=== PATIENT | female | born 1990 | race Caucasian/White ===

== ENCOUNTER 2019-08-23 20:21 | Emergency (ER) | payer BC ==
[2019-08-23 20:36] VITALS: BP 134/86; PULSE 70
--- NOTE | 2019-08-23 22:44 | EDM.PDOC ---
ED HPI GENERAL MEDICAL PROBLEM - General Chief Complaint: Abdominal Pain Stated Complaint: ABDOMINAL PAIN Time Seen by Provider: 08/23/19 22:08 Source of Information: Reports: Patient History Limitations: Reports: Other (The patient is angry about her situation, stating that she is not getting answers) - History of Present Illness INITIAL COMMENTS - FREE TEXT/NARRATIVE: Ms. Fox is a 29-year-old woman with a past medical history significant for untreated polycystic ovarian disease, status post a cholecystectomy in 2014, who states that she ate dinner around 19:30, then developed sudden-onset sharp right lower quadrant abdominal pain around that time. She states that the pain shot up a little bit, and was felt as a burning sensation in her lower right back. Since then, the pain has lessened considerably, such that she in not in much pain here in the ED. The patient reports that she has had similar sharp right lower quadrant pain radiating to her right lower back coming and going about every 2 weeks, usually in the evening, since May 2019. She has been taking naproxen every other day. She states that she was seen at the [facility] for this, but not given any explanation. The patient reports that she had an IUD placed about 6 or 7 weeks ago (around Jul 05 to Jul 12), and out of concern that her pain might be related to dislodgment of the IUD, she felt for the IUD strings tonight, finding them, but also noticing a firm bump on the anterior wall of her vagina that she has not felt previously. The patient acknowledges that she has not felt for her IUD strings since the IUD was placed. The patient also reports that she has felt constipated for the past few weeks. She did not have a bowel movement tonight. She has had some nausea, but no emesis. She reports a 10 pound weight gain over the past 4 weeks. No recent fever, chills, cough, dyspnea chest pain, palpitations, diarrhea, joint aches, headaches, or rashes. The patient does not have a PCP. Her Commercial Producer is Dr. Hannah Ferrari. Treatments CARPET WINDER: Reports: NSAIDS, Other (see below) Other Treatments CARPET WINDER: naproxen Right Lower Abdominal Pain Score (Numeric/FACES): 3 - Related Data Allergies Allergy/AdvReac Type Severity Reaction Status Date / Time No Known Allergies Allergy Verified 08/23/19 20:36 Home Meds: Home Meds . [No Known Home Meds] 08/23/19 [History] Past Medical History [employer] History: Reports: Polycystic Ovaries (untreated), Therapeutic ( x 1) Endocrine/Metabolic History: Reports: Obesity/BMI 30+ - Past Surgical History GI Surgical History: Reports: Cholecystectomy (2015) Social & Family History - Tobacco Use Smoking Status *Q: Never Smoker - Caffeine Use Caffeine Use: Reports: Coffee - Alcohol Use Alcohol Use History: Yes Alcohol Use Frequency: Socially - Recreational Drug Use Recreational Drug Use: No - Living Situation & Occupation Living situation: Reports: Single, Alone Occupation: Employed ([employer]) ED ROS GENERAL - Review of Systems Review Of Systems: Comprehensive ROS is negative, except as noted in HPI. ED EXAM, GI/ABD - Physical Exam Exam: See Below Exam Limited By: No Limitations General Appearance: Alert, WD/WN, No Apparent Distress Eyes: Bilateral: Normal Appearance, EOMI Ears: Normal External Exam, Hearing Grossly Normal Nose: Normal Inspection Throat/Mouth: Normal Inspection, Normal Lips, Normal Voice, No Airway Compromise Head: Atraumatic, Normocephalic Neck: Normal Inspection, Full Range of Motion Respiratory/Chest: No Respiratory Distress, Lungs Clear, Normal Breath Sounds, No Accessory Muscle Use Cardiovascular: Normal Peripheral Pulses, Regular Rate, Rhythm, No Edema, No Gallop, No JVD, No Murmur, No Rub GI/Abdominal Exam: Normal Bowel Sounds, Soft, No Organomegaly, No Distention, No Abnormal Bruit, No Mass, Tender (Minimal, right pelvic only. Nontender elsewhere.) (Female) Exam: Normal External Exam, Normal Bimanual Exam, Vaginal Bleeding ( mild, thin), Other (IUD strings visible). No: Vaginal Discharge, Vaginal Lesions, Vaginal Tears Rectal (Female) Exam: Deferred Back Exam: Normal Inspection, Full Range of Motion. No: CVA Tenderness (L), CVA Tenderness (R) Extremities: Normal Inspection, Normal Range of Motion, No Pedal Edema, Normal Capillary Refill Neurological: Alert, Oriented, Normal Cognition, No Motor/Sensory Deficits Psychiatric: Normal Affect Skin Exam: Warm, Dry, Intact, Normal Color, No Rash Course - Vital Signs Last Recorded V/S: Last Vital Signs Temp 37.2 C 08/23/19 20:30 Pulse 70 08/23/19 20:30 Resp 18 08/23/19 20:30 BP 134/86 08/23/19 20:30 Pulse Ox 99 08/23/19 20:30 - Orders/Labs/Meds Labs: Laboratory Tests 08/23/19 08/23/19 08/23/19 Range/Units 21:15 21:15 21:35 WBC 6.47 (3.98-10.04) K/mm3 RBC 4.50 (3.98-5.22) M/mm3 Hgb 13.4 (11.2-15.7) gm/dl Hct 39.8 (34.1-44.9) % MCV 88.4 (79.4-94.8) fl MCH 29.8 (25.6-32.2) pg MCHC 33.7 (32.2-35.5) g/dl RDW Std Deviation 40.6 (36.4-46.3) fL Plt Count 193 (182-369) K/mm3 MPV 10.2 (9.4-12.3) fl Neutrophils % (Manual) 58 (40-60) % Band Neutrophils % 0 (0-10) % Lymphocytes % (Manual) 35 (20-40) % Atypical Lymphs % 0 % Monocytes % (Manual) 5 (2-10) % Eosinophils % (Manual) 1 (0.7-5.8) % Basophils % (Manual) 1 (0.1-1.2) Platelet Estimate Adequate RBC Morph Comment Normal Sodium 140 (136-145) mEq/L Potassium 4.5 (3.5-5.1) mEq/L Chloride 103 (98-107) mEq/L Carbon Dioxide 29 (21-32) mEq/L Anion Gap 12.5 (5-15) BUN 21 H (7-18) mg/dL Creatinine 0.8 (0.55-1.02) mg/dL Est Cr Clr Drug Dosing 104.66 mL/min Estimated GFR (MDRD) > 60 (>60) mL/min BUN/Creatinine Ratio 26.3 H (14-18) Glucose 85 (74-106) mg/dL Calcium 9.1 (8.5-10.1) mg/dL Total Bilirubin 1.6 H (0.2-1.0) mg/dL AST 12 L (15-37) U/L ALT 19 (14-59) U/L Alkaline Phosphatase 38 L (46-116) U/L Total Protein 7.7 (6.4-8.2) g/dl Albumin 4.0 (3.4-5.0) g/dl Globulin 3.7 gm/dL Albumin/Globulin Ratio 1.1 (1-2) Urine Color Yellow (Yellow) Urine Appearance Clear (Clear) Urine pH 7.5 (5.0-8.0) Ur Specific [place] 1.020 (1.005-1.030) Urine Protein Negative (Negative) Urine Glucose (UA) Negative (Negative) Urine Ketones Negative (Negative) Urine Occult Blood 1+ H (Negative) Urine Nitrite Negative (Negative) Urine Bilirubin Negative (Negative) Urine Urobilinogen 0.2 (0.2-1.0) Ur Leukocyte Esterase Negative (Negative) Urine RBC 0-5 (0-5) /hpf Urine WBC 0-5 (0-5) /hpf Ur Squamous Epith Cells 5-10 H (0-5) /hpf Urine Bacteria Few (FEW) /hpf Urine Mucus Not seen (FEW) /hpf Urine HCG, Qual (NEGATIVE) 08/23/19 Range/Units 21:35 WBC (3.98-10.04) K/mm3 RBC (3.98-5.22) M/mm3 Hgb (11.2-15.7) gm/dl Hct (34.1-44.9) % MCV (79.4-94.8) fl MCH (25.6-32.2) pg MCHC (32.2-35.5) g/dl RDW Std Deviation (36.4-46.3) fL Plt Count (182-369) K/mm3 MPV (9.4-12.3) fl Neutrophils % (Manual) (40-60) % Band Neutrophils % (0-10) % Lymphocytes % (Manual) (20-40) % Atypical Lymphs % % Monocytes % (Manual) (2-10) % Eosinophils % (Manual) (0.7-5.8) % Basophils % (Manual) (0.1-1.2) Platelet Estimate RBC Morph Comment Sodium (136-145) mEq/L Potassium (3.5-5.1) mEq/L Chloride (98-107) mEq/L Carbon Dioxide (21-32) mEq/L Anion Gap (5-15) BUN (7-18) mg/dL Creatinine (0.55-1.02) mg/dL Est Cr Clr Drug Dosing mL/min Estimated GFR (MDRD) (>60) mL/min BUN/Creatinine Ratio (14-18) Glucose (74-106) mg/dL Calcium (8.5-10.1) mg/dL Total Bilirubin (0.2-1.0) mg/dL AST (15-37) U/L ALT (14-59) U/L Alkaline Phosphatase (46-116) U/L Total Protein (6.4-8.2) g/dl Albumin (3.4-5.0) g/dl Globulin gm/dL Albumin/Globulin Ratio (1-2) Urine Color (Yellow) Urine Appearance (Clear) Urine pH (5.0-8.0) Ur Specific [place] (1.005-1.030) Urine Protein (Negative) Urine Glucose (UA) (Negative) Urine Ketones (Negative) Urine Occult Blood (Negative) Urine Nitrite (Negative) Urine Bilirubin (Negative) Urine Urobilinogen (0.2-1.0) Ur Leukocyte Esterase (Negative) Urine RBC (0-5) /hpf Urine WBC (0-5) /hpf Ur Squamous Epith Cells (0-5) /hpf Urine Bacteria (FEW) /hpf Urine Mucus (FEW) /hpf Urine HCG, Qual Negative (NEGATIVE) - Re-Assessments/Exams Free Text/Narrative Re-Assessment/Exam: 08/23/19 22:39 2-view radiograph of the abdomen appears to demonstrate some stool in the cecum and in the descending colon, but not an excessive amount, and an otherwise nonspecific bowel gas pattern. An IUD is in anatomic position. Cholecystectomy wili in the right upper quadrant incidentally noted. Formal read per the Radiologist pending. The patient's CBC is unremarkable. Her CMP is remarkable for a BUN slightly elevated at 21 with a creatinine normal at 0.8. Her total bilirubin is elevated at 1.6, with the remainder of her CMP being unremarkable. Her urinalysis is unremarkable. Her urine test is negative. As per the HPI, the patient has had recurrent sharp right lower quadrant pain radiating upwards into her right flank about every 2 weeks since May. This is not new. What is new, is the patient palpating a lump along her anterior vaginal wall, near the introitus, when checking for the IUD strings. The patient has not felt that before, but acknowledges that she has had not checked for the strings previously, either. On examination, the patient has mild right pelvic and mild right upper quadrant tenderness, but her abdomen is soft with normoactive bowel sounds, and is otherwise nontender. At present, I do not see an indication for an imaging study, however, I will perform a pelvic exam and see if I find anything abnormal that might warrant such a study. 08/23/19 23:05 On speculum examination, I saw no abnormalities, other than a small amount of thin vaginal bleeding. The IUD strings were visible, but no portion of the IUD was protruding from the cervix. On bimanual examination, I felt the firm lump that the patient was talking about, and it is her urethral orifice. We discussed the option of performing an imaging study. As above, because the patient experiences this sharp right pelvic pain about every 2 weeks since May, it is hard to argue that it is a medical emergency, and therefore difficult to justify a CT scan. If the patient needed an imaging study of her abdomen and pelvis, I would prefer that she have an outpatient MRI, which would avoid radiation. I explained to the patient that MRIs cannot be ordered from the emergency department. We discussed the option of performing a pelvic ultrasound tonight, which I'm willing to do, however, the patient noted that she underwent a pelvic ultrasound just prior to having the IUD placed about 6 or 7 weeks ago, which did not find anything. It is safe to say that a repeat ultrasound tonight would not likely find anything either, therefore the patient declined the offer. For today's purposes, I will refer the patient to Dr. Clare Smart, who can not only address gynecologic issues that the patient may have, but also pursue non- gynecologic causes of the patient's recurrent pain, as well. If an MRI of the abdomen is indicated, Dr. Smart can order that. Departure - Departure Time of Disposition: 23:09 Disposition: Home, Self-Care 01 Condition: Good Clinical Impression: Right lower quadrant abdominal pain of unknown etiology - Discharge Information *PRESCRIPTION DRUG MONITORING PROGRAM REVIEWED*: Not Applicable *COPY OF PRESCRIPTION DRUG MONITORING REPORT IN PATIENT FABIANA: Not Applicable Instructions: Pelvic Pain, Female, [id number] Referrals: Clare Smart MD [Physician] - Hannah Guerra MD [Physician] - Forms: ED Department Discharge Additional Instructions: You were seen in the emergency room for recurrent right pelvic pain shooting upward and to your right back, about every 2 weeks since May, as well as for concerns about a lump felt in your anterior vagina, near the introitus. Workup in the ER included blood work, a urinalysis, a urine tightness he test, a wet prep, and abdominal x-rays. Your entire workup was unremarkable. There is no suggestion of an infection. You do not have a UTI. You are not . You are not significantly constipated. On pelvic examination, the lump that was palpated is your urethral orifice. A pelvic ultrasound was offered, but declined. We recommend that you follow-up with Dr. Clare Smart, for further evaluation. If any other problems, please do not hesitate to return to the ER. Sepsis Event Note - Evaluation Sepsis Screening Result: No Definite Risk - Focused Exam Date Exam was Performed: 08/27/19 Time Exam was Performed: 18:12
--- NOTE | 2019-08-24 07:51 | CR ---
Abdomen: Supine and upright views of the abdomen were obtained. Comparison: Previous MRI abdominal study of 10/21/13 and limited abdominal ultrasound of 08/30/13. Surgical clips are seen from prior cholecystectomy. Minimal increased stool within the colon is seen. IUD is noted within the pelvis. Slight degenerative change is noted within the spine with minimal scoliosis. Impression: 1. Findings as noted above. 2. Nothing acute is seen. Diagnostic code #2 This report was dictated in [place] Standard Time
== END 2019-08-23 23:16 | disposition home or self-care (01) ==
LOC: JD.ED 20:21
DX: R10.31 Right lower quadrant pain (principal)
CPT/HCPCS: 36415; 74019; 74019-26; 80053; 81001; 81025; 85007; 85027; 99284-25